=== PATIENT | female | born 1995 | race Hispanic/Latino ===

== ENCOUNTER 2019-08-05 13:54 | Emergency (ER) | payer BC ==
[~2019-08-05] VITALS: Ht 162.6 cm; Wt 97.5 kg
--- OUTSIDE RECORDS SUMMARY | 2019-08-05 13:56 | XMS REPORT | Continuity of Care Document ---
Author Author [employer] [facility] [employer] Address Unknown Phone Unavailable Care Team Providers Care Platform Loader Name Role Phone [facility] Information Unomy Unavailable Unavailable Problems Problem Status Onset Date Classification Date Reported Comments Source Contraception (finding) Resolved Problem 03/07/2019 PT IS TAKING [facility]ES[facility] CONTROL [facility] Medications Medication Details Route Status Patient Instructions Ordering Provider Order Date Source Brompheniramine Maleate 0.4 MG/ML / Dextromethorphan Hydrobromide 2 MG/ML / Pseudoephedrine Hydrochloride 6 MG/ML Oral Solution [Bromfed DM] 5 mL, PO, Q4H, PRN cough, X 8 day, # 240 mL, 0 Refill(s), Pharmacy: [facility] [id number] No Longer Active 08/18/2018 [facility] Allergies, Adverse Reactions, Alerts No Known Medication Allergies Immunizations No Data Provided for This Section Results No Data Provided for This Section Pathology Reports No Data Provided for This Section Diagnostic Reports Report Value Date Source Chest 2 views DX XR CHEST 2 VIEWS HISTORY: - cough and fever COMPARISON: None. FINDINGS: The lungs are clear. The heart and vascular markings are normal. No pleural abnormality. The bones are intact. IMPRESSION: No active process. SL: [id number] 08/18/2018 [facility] Abdomen 2 views DX Patient Name: FRANK ANDRE : 1995; Age: 21 years y/o Female MR: [id number] Study: Supine and upright KUB dated 02/05/2017. Clinical Indication: Generalized abdominal pain; Comparison: None The upright view does not extend to the hemidiaphragms superiorly. No definite evidence of free intraperitoneal air. Nonpathologic bowel gas pattern without evidence of bowel obstruction. No abnormal abdominal or pelvic calcifications. SL: CSODERSTROM-DEBORAH 02/05/2017 [facility] Consultation Notes No Data Provided for This Section Discharge Summaries No Data Provided for This Section History and Physicals No Data Provided for This Section Vital Signs Vital Sign Value Date Comments Source BMI Calculated 44.1 08/18/2018 [facility] Temperature Oral (F) 98.7 F 08/18/2018 [facility] Height 162.56 cm 08/18/2018 [facility] Weight 116.534 08/18/2018 [facility] Respitory Rate 14 08/18/2018 [facility] Heart Rate 94 08/18/2018 [facility] Systolic (mm Hg) 126 08/18/2018 [facility] Diastolic (mm Hg) 84 08/18/2018 [facility] Encounters Location Location Details Encounter Type Encounter Number Reason For Visit Attending Provider ADM Date DC Date Status Source Outpatient [id number] [facility]2017 Active [facility] Outpatient [id number] [facility] 05/13/2017 [facility] Outpatient [id number] CLAIRE BUENROSTRO 08/18/2018 [facility] Outpatient [id number] [facility] 08/18/2018 08/19/2018 [facility] Procedures Procedure Code Date Perfomer Comments Source Knee joint operation [id number] [facility] Assessment and Plan No Data Provided for This Section Plan of Care No Data Provided for This Section Social History Social History Date Source Social History TypeResponse Smoking Status Current some day smoker; Ready to change: No; Concerns about tobacco use in household: No; Exposure to Tobacco Smoke None; Cigarette Smoking Last 365 Days No; Reg Smoking Cessation Counseling No entered on: 08/18/18 08/18/2018 [facility] Family History No Data Provided for This Section Advance Directives No Data Provided for This Section Functional Status No Data Provided for This Section
--- OUTSIDE RECORDS SUMMARY | 2019-08-05 13:56 | XMS REPORT | Summary of Care ---
Author Author [facility] Address Unknown Phone Unavailable Encounter TOMÁS Jackson(FIN) [id number] Date(s): 08/18/18 - 08/18/18 [facility]. [address] [place] [address]- Discharge Disposition: Home or Self Care Attending Physician: Kim Akers MD Vital Signs Most recent to 1 oldest [Reference Range]: Height 162.56 cm (08/18/18 5:51 PM) Temperature Oral 98.7 DegF [96.4-99.1 DegF] (08/18/18 5:51 PM) Blood Pressure 126/84 mmHg [90-140/60-90 mmHg] (08/18/18 5:51 PM) Respiratory Rate 14 BRMIN [14-20 BRMIN] (08/18/18 5:51 PM) Peripheral Pulse 94 bpm Rate [60-100 bpm] (08/18/18 5:51 PM) Weight 116.534 kg (08/18/18 5:51 PM) Body Mass Index 44.1 m2 (08/18/18 5:51 PM) Problem List Condition Effective Dates Status Health Status Informant Resolved control(Confirmed)1 1PT IS TAKING [employer]ESA CONTROL Allergies, Adverse Reactions, Alerts Substance Reaction Severity Status NKDA Active Medications Bromfed DM oral syrup 5 mL, PO, Q4H, PRN cough, X 8 day, # 240 mL, 0 Refill(s), Pharmacy: [id number] Start Date: 08/18/18 Stop Date: 08/26/18 Status: Completed Results No data available for this section Immunizations No data available for this section Procedures Procedure Date Related Diagnosis Body Site Status Knee joint operation Completed Social History Social History Type Response Smoking Status Current some day smoker; Ready to change: No; Concerns about tobacco use in household: No; Exposure to Tobacco Smoke None; Cigarette Smoking Last 365 Days No; Reg Smoking Cessation Counseling No entered on: 08/18/18 Assessment and Plan No data available for this section
== END 2019-08-05 15:00 | disposition home or self-care (01) ==
LOC: FSED 13:54
DX: L02.415 Cutaneous abscess of right lower limb (principal); L02.214 Cutaneous abscess of groin
CPT/HCPCS: 99283

== ENCOUNTER → 2020-12-06 | Outpatient (CLI) | payer OTHER ==
[~2020-12-06] MED LIST: COVID-19 VACC, MRNA(MODERNA)/PF 100 MCG/0.5 ML VIAL IM ONE
== END | disposition home or self-care (01) ==
LOC: VACCPMC 18:00
DX: Z23 Encounter for immunization (principal); Z20.822 Contact with and (suspected) exposure to COVID-19

== ENCOUNTER → 2021-01-09 | Outpatient (CLI) | payer OTHER | END | DRG 951 | LOC: VACCPMC 12:59 | DX: Z23 Encounter for immunization (principal); Z20.822 Contact with and (suspected) exposure to COVID-19 | CPT/HCPCS: 0012A; 91301 ==